=== PATIENT | female | born 1980 | race Caucasian/White ===

== ENCOUNTER 2023-04-03 02:32 | Outpatient (CLI) | payer MEDICAID, SELFPAY ==
[2023-04-03 10:40] LABS: HCT 40.3 % (36.0-46.0); HGB 13.4 g/dL (11.2-15.7); MCH 31.5 pg (27.0-33.0); MCHC 33.3 % (32.0-36.0); MCV 95 fL (80-95); MPV 8.8 fL (8.0-11.0); Platelet Count 391 10^3/uL (130-400); RBC 4.26 10^6/uL (3.93-5.22); RDW 12.5 % (11.7-14.6); RDW-SD 43.1 fL; WBC 7.81 10^3/uL (4.4-10.8)
== END 2023-04-03 02:33 | disposition home or self-care (01) ==
LOC: LBO 02:33
PROVIDERS: Visit Provider Obstetrics & Gynecology
DX: Z30.09 Encounter for other general counseling and advice on contraception (principal); Z01.818 Encounter for other preprocedural examination; Z01.812 Encounter for preprocedural laboratory examination
CPT/HCPCS: 36415; 85027; 86850; 86900; 86901

== ENCOUNTER 2023-04-04 09:32 | Day surgery (SDC) | payer MEDICAID, SELFPAY ==
[2023-04-04] VITALS (10 sets, daily range): BP systolic 106–152; BP diastolic 69–94; PULSE 78–111; RESP 12–22; TEMP 36.3–37.1; O2SAT 93–98; BMI 39.3
[2023-04-04] MEDS: Lactated Ringers 1,000 ML 125 ML IV (10:25)
--- NOTE | 2023-04-04 12:14 | W.ANESPRE ---
General Info Date of Service Date Performed: 04/04/23 Height: 5 ft 6 in Weight: 110.6 kg Body Mass Index (BMI): 39.3 Surgical Procedure: Operation Date: 04/04/23 11:10 Proposed Procedure Side Surgeon p Salpingectomy Laparoscopic Bilateral Marcy Farfan MD Meds Allergies and Home Medications Allergies Allergy/AdvReac Type Severity Reaction Status Date / Time hydrocodone Allergy Unknown Itching Unverified 04/04/23 09:53 Sulfa (Sulfonamide AdvReac Severe BAD Unverified 04/04/23 09:53 Antibiotics) HEADACHES Home Medication Medication Instructions Recorded nifedipine 60 mg tablet,extended 60 mg PO DAILY 02/19/23 release thyroid (pork) 60 mg tablet 90 mg PO DAILY #60 tabs 02/19/23 ([place] Thyroid) Current Visit Medications: Current Medications Generic Name Dose Route Start Last Admin Trade Name Freq PRN Reason Stop Dose Admin Ringer's Solution 1,000 mls @ 125 mls/hr 04/04/23 06:00 04/04/23 10:25 IV 05/03/23 23:59 125 mls/hr INFUSION YASH Administration IV Miscellaneous Supplies 1 each 04/04/23 06:00 Iv Access IV 05/03/23 23:59 DIRECTED YASH Sodium Chloride 0 ml 04/04/23 06:00 Normal Saline Flush 10 Ml Syr IV 05/03/23 23:59 PRN PRN Sodium Chloride 0 ml 04/04/23 06:00 Normal Saline 10 Ml Vial IJ 05/03/23 23:59 DIRECTED PRN Sterile Water 0 ml 04/04/23 06:00 Water,Injection,Sterile 10 Ml Vial IJ 05/03/23 23:59 DIRECTED PRN PFSH Medical History Medical History Abuse, drug or alcohol Anemia Depression Flash-Danlos syndrome TYPE III Gallbladder calculus (03/11/13) Hypertension Hypothyroidism (10/06/13) Migraine Mother currently breast-feeding Medical History Comments:: no anesthesia history as an adult, only as child Surgical History Surgical History skin graft 6 yo Tonsillectomy and adenoidectomy 6 yrs Tobacco Smoking/Tobacco Use Status: Never Alcohol Alcohol Intake: never Substance Use Substance use: Never Substance use type: does not use Prental History History 9 Para 6 Hx # Term Pregnancies 6 Multiple births Hx # Pregnancies Ectopic pregnancies AB induced Hx Number of Living Children 6 AB spontaneous 3 Past Pregnancies Del. Date GA/Weeks # Preg Succ Route Wgt Sex Labor Lgth Anesthesia Location Prov Compl 07/13/00 39 Yes vaginal Female [place] 07/26/02 39 Yes vaginal Male [place] 11/04/05 39 Yes vaginal 3855.535 g Female [place] 02/12/11 39 Yes vaginal 3316.894 g Male [facility] 08/10/13 41 Yes vaginal 3685.438 g Female [facility] 10/21/21 37 Yes vaginal 2891.651 g Male [facility] Delivery Date: 07/13/00 Last Updated by: Katya Max Delivery Date: 07/26/02 Last Updated by: Katya Ferrell Delivery Date: 11/04/05 Last Updated by: Katya Gonzalez Delivery Date: 02/12/11 Last Updated by: Katya Villarreal Delivery Date: 08/10/13 Last Updated by: Katya Billingsley Delivery Date: 10/21/21 Last Updated by: Katya Gupta Vital Signs and Lab Results Vital Signs Most Recent Vital Signs in EMR: Most Recent Vital Signs Temp Pulse Resp BP Pulse Ox 36.8 C 88 22 106/73 96 04/04/23 11:00 04/04/23 11:00 04/04/23 09:55 04/04/23 11:00 04/04/23 11:00 Point of Care Results Point of Care Results: POC- Test(urine) Negative 04/04/23 10:08 Lab Results Blood Type / Crossmatch: Patient ABO/Rh O Negative 04/03/23 Antibody Screen NEGATIVE 04/03/23 Complete Blood Count: White Blood Count 7.81 10^3/uL (4.4-10.8) 04/03/23 10:31 Red Blood Count 4.26 10^6/uL (3.93-5.22) 04/03/23 10:31 Hemoglobin 13.4 g/dL (11.2-15.7) 04/03/23 10:31 Hematocrit 40.3 % (36.0-46.0) 04/03/23 10:31 Platelet Count 391 10^3/uL (130-400) 04/03/23 10:31 Complete Metabolic Panel: No Data to Display Liver Function Panel: No Data to Display Coagulation Panel: No Data to Display Cardiac Panel: No Data to Display Arterial Blood Gas: No Data to Display Venous Blood Gas: No Data to Display Pancreas Panel: No Data to Display Thyroid Panel: No Data to Display Infectious Disease: No Data to Display Blood Cultures: No Data to Display Toxicology Panel: No Data to Display Panel: No Data to Display Anesthesia Assessment and Plan Anesthesia History Personal History: No History of Anesthesia Complications Family History: No Family History of Anesthesia Complications Exercise Tolerance Exercise Tolerance: Metabolic Equivalents>4 Pertinent Negatives Pertinent Negatives: No Symptoms of GERD, No Major Cardiovascular Symptoms or Complaints and No Major Pulmonary Symptoms or Complaints Cardiac & Pulmonary Exam Cardiac Exam: Normal S1/S2 Heart Sounds Pulmonary Exam: Clear Bilateral Breath Sounds Implantable Cardiac Device Does patient have a Pacemaker or an ICD?: No Airway Exam Known Difficult Airway: No Mallampati Class: 2 Mouth Opening: Normal (> 3cm) Thyromental Distance: Greater than 3 cm Neck Range of Motion: Full ROM Neck Circumference: Thick Teeth Condition: Normal Dentition ASA Classification ASA Score: ASA 2 Emergency Case?: No NPO Status NPO Status: NPO Clears >2 hours, Solids >8 hours Status Status: Negative HCG Anesthesia Plan Resuscitation Status: Full Code Anesthesia Technique: General Anesthesia Airway Planned: Endotracheal Tube Monitors Used: Standard Monitors and SedLine
[2023-04-04] MEDS: Bupivacaine 0.25% Pres-Free 30 ML VIAL (13:13)
--- NOTE | 2023-04-04 13:28 | FALL_PTH ---
PATIENT: Adalgisa Llanes LOC: [facility] U#:[id number] AGE/SX: 42/F ROOM: RE04/04/[address]: Marcy Farfan MD : [id number] BED: DIS: 04/04/2023 SPEC #: [id number] RECD: 04/04/23 17:14 STATUS: [facility] #: [id number] [place]: 04/04/23 13:[address]: Marcy Farfan DEPT: Surgical Specimen RECD BY: Jennifer Joshi ENTERED: 04/04/23 17:15 SP TYPE: Fall OTHR DR: Mary Coronel Tissues: 1 - FALLOPIAN TUBE (STERILIZATION) Procedures: GROSS AND MICRO LEVEL 2 Comments: [id number]
[2023-04-04] MEDS: fentaNYL 100 MCG/2 ML VIAL IVP (14:33)
--- NOTE | 2023-04-04 14:34 | ROE_ITS ---
Date of service: 04/04/23 Time of Service: 13:00 Operative Note Operative Note DATE OF PROCEDURE: 04/04/23 PRE-OP DIAGNOSIS: desires permanent sterilization POST-OP DIAGNOSIS: same PROCEDURE: Laparoscopic bilateral salpingectomy SURGEON: Marcy Farfan ASSISTING SURGEON: Lacey Rolle Refer to Anesthesia Record COMPLICATIONS: None Patient was transported to: PACU Patient's condition: stable Indications: P6 who desires permanent sterilization Findings: Small right hemorrhagic ovarian cyst. Normal appearing uterus, ovaries, tubes and upper abdomen on quick visualization Procedure Description: After informed consent was signed the patient was taken to the operating room and given general anesthesia.? SCDs were placed on her legs.? She was prepped and draped in the dorsal lithotomy position in the [facility].? Her bladder was drained of urine prior to arrival in the OR. A speculum was placed into the vagina to expose the cervix and a hulka manipulator was placed into the cervix. The speculum was removed. Gloves were changed and attention was turned to the abdomen. The infraumbilical fold was grasped and injected with 0.25% marcaine with epinephrine. A 10mm incision was made in the infraumbilical fold with the scalpel. A hemostat was used to bluntly dissect the subcuticular layers. The fascia was grasped with neri clamps and incised. The incision was extended with blunt pressure. The peritoneum was grasped and incised with metzembaum scissors. The 5mm visiport was used to enter the abdomen under direct visualization. Once entrance to the abdominal cavity was confirmed the CO2 was turned on and the abdomen was insufflated. Two lateral 5mm ports were then placed under direct visualization. The left tube was identified and followed to the fimbriated end. The tube was grasped and elevated and the mesosalpinx was clamped, cauterized and cut with the ligasure device. The was continued along the length of the tube. The proximal end of the tube was then transected with the ligasure. Good hemostasis was noted. The right tube was then identified and followed to the fimbriated end. The tube was grasped and elevated and the mesosalpinx was clamped, cauterized and cut with the ligasure device. The was continued along the length of the tube. The proximal end of the tube was then transected with the ligasure. Good hemostasis was noted on both sides. The ports were removed. The gas was released from the abdomen. The skin incisions were then closed with 4-0 vicryl. Mastisol and steristrips were placed. The manipulator was removed. The patient was placed back into the supine position.? She was moved to the stretcher and taken to the recovery room in stable condition.
--- NOTE | 2023-04-04 15:49 | W.ANESPOSTOP ---
Postoperative Evaluation Date, Time and Location Date Performed: 04/04/23 Time Performed: 15:49 Patient Location: Day Surgery Unit Vital Signs Most Recent Imported Vital Signs: Most Recent Vital Signs Temp Pulse Resp BP Pulse Ox 36.3 C L 80 16 123/92 H 93 04/04/23 14:59 04/04/23 14:59 04/04/23 14:59 04/04/23 14:59 04/04/23 14:59 Pain Score Most Recent Pain Score: Most Recent Pain Score Pain Level 4 04/04/23 14:59 Assessment Mental Status: Awake (Alert & Oriented to Patient Baseline) Airway and Respiratory Function: Patent airway with normal (patient baseline) respiratory exam Cardiovascular Function: Hemodynamically Stable Hydration Status: Adequately Hydrated Nausea & Vomiting: No Nausea or Vomiting Pain: Pain is tolerable per patient Peripheral Nerve Block: Patient did not receive a nerve block
== END 2023-04-04 16:10 | disposition home or self-care (01) ==
PROVIDERS: PCP Naturopath; Visit Provider Obstetrics & Gynecology
PROC: (CPT 58661; principal; 2023-04-04 11:00)
DX: Z30.2 Encounter for sterilization (principal)
CPT/HCPCS: 58661; 81025; 88302; J1100; J1885; J2001; J2250; J2405; J2704; J3010